=== PATIENT | female | born 1940 | race Caucasian/White ===

== ENCOUNTER 2018-04-07 16:30 | Inpatient (IN) | payer BC ==
[~2018-04-07] VITALS: Ht 162.6 cm; Wt 107.5 kg
[2018-04-07 16:34] VITALS: BP 160/70
[2018-04-07] MEDS ORDERED: COZAAR 25 MG TA25 M1 PO (16:47)
[2018-04-07] MEDS ORDERED: TOPROL XL25 MG PO (16:48)
[2018-04-07] MEDS ORDERED: FUROSEMIDE 40 M40 M1 PO (16:48)
[2018-04-07] MEDS ORDERED: SYNTHROID112 MC1 PO (16:48)
[2018-04-07] MEDS ORDERED: BACTRIM DS TAB1 EACH PO (16:49)
[2018-04-07] MEDS ORDERED: ASPIR 8181 MG PO (16:49)
[2018-04-07 17:00] LABS: ABSOLUTE EOSINOPHILS 0.1 thou/uL (0.0-0.7); ABSOLUTE LYMPHOCYTES 2.7 thou/uL (0.8-5.3); ABSOLUTE MONOCYTES 0.6 thou/uL (0.0-1.2); ABSOLUTE NEUTROPHILS 3.2 thou/uL (1.6-8.1); BASOPHILS 0.5 %; EOSINOPHILS 1.3 %; HEMATOCRIT 40.6 % (37.0-47.0); HEMOGLOBIN 13.8 gm/dL (12.0-15.0); LYMPHOCYTES 41.3 %; MCH 32.3 pg (26.0-34.0); MONOCYTES 8.5 %; MPV 9.9 fl. (7.2-11.1); NUCLEATED RBCS 0 /100WBC; PLATELET COUNT* 189 thou/uL (150-400); POLYS 48.4 %; RBC 4.27 mil/uL (4.20-5.00); RDW-CV 13.7 % (10.5-14.5); WBC 6.6 thou/uL (4.0-11.0)
[2018-04-07 17:06] LABS: ANION GAP 7 mmol/L (7-16); BUN 29 mg/dL (7-18); CALCIUM 9.2 mg/dL (8.5-10.1); CHLORIDE 100 mmol/L (98-107); CO2 33 mmol/L (21-32); CREATININE 1.1 mg/dL (0.6-1.3); GLUCOSE 98 mg/dL (70-99); POTASSIUM 4.3 mmol/L (3.5-5.1); SODIUM 140 mmol/L (136-145)
[2018-04-07 17:14] LABS: ALBUMIN 3.8 g/dL (3.4-5.0); ALKALINE PHOSPHATASE 122 U/L (46-116); CK-MB MASS 1.3 ng/mL (<0.5-3.6); LIPASE 235 U/L (73-393); NT-PRO BRAIN NAT PEPTIDE 129 pg/mL (<300); SGOT 19 U/L (15-37); SGPT 29 U/L (30-65); TOTAL BILIRUBIN 0.3 mg/dL (<0.1-1.0); TOTAL PROTEIN 7.5 g/dL (6.4-8.2); TROPONIN-I LEVEL <0.06 ng/mL (<0.06)
[2018-04-07 17:16] LABS: PROTIME 10.2 Seconds (9.20-11.50)
[2018-04-07 19:41] VITALS: BP 167/82
[2018-04-07 19:55] VITALS: BP 182/81
[2018-04-08] VITALS: BP 124/50
[2018-04-08 00:54] LABS: HEMATOCRIT 37.2 % (37.0-47.0); HEMOGLOBIN 12.5 gm/dL (12.0-15.0); MCHC 33.7 g/dL (28.0-37.0); MCV 95.1 fL (80.0-100.0); MPV 9.6 fl. (7.2-11.1); RBC 3.91 mil/uL (4.20-5.00); WBC 5.8 thou/uL (4.0-11.0)
[2018-04-08 01:48] LABS: BUN 28 mg/dL (7-18); CALCIUM 8.7 mg/dL (8.5-10.1); CHOLESTEROL 193 mg/dL (<200); CO2 31 mmol/L (21-32); CREATININE 0.9 mg/dL (0.6-1.3); GLUCOSE 99 mg/dL (70-99); HDL CHOLESTEROL 40 mg/dL (>40); LDL CHOLESTEROL 103 mg/dL (<100); TC:HDL 4.8 Ratio (Not establshd); TRIGLYCERIDE 250 mg/dL (<150); VLDL 50 mg/dL (<40)
[2018-04-08 02:02] LABS: ANION GAP 6 mmol/L (7-16); CHLORIDE 104 mmol/L (98-107); SERUM ASSESSMENT CLEAR; SODIUM 141 mmol/L (136-145)
[2018-04-08 04:00] VITALS: BP 124/49
[2018-04-08 08:30] VITALS: BP 125/77
[2018-04-08 12:00] VITALS: BP 153/73
--- NOTE | 2018-04-08 13:31 | 2DMMODE ---
[place] [address] 2 D/M-MODE ECHOCARDIOGRAM Name: NORM OLVERA Room: [address] IN [facility].#: [id number] Admission: 04/07/18 Attend Phys: Kip Macias MD Discharge: Date of : 36 Date of Service: 04/08/18 1330 Report #: [id number] THIS REPORT FOR: //name// APPROVED REPORT Study performed: 04/08/2018 08:58:35 EXAM: Comprehensive 2D, Doppler, and color-flow Echocardiogram Patient Location: Bedside BSA: 2.11 HR: 61 bpm BP: 124/49 mmHg Other Information Study Quality: Fair Indications Congestive Heart Failure 2D Dimensions IVSd: 10.63 (7-11mm) LVOT Diam: 20.54 (18-24mm) LVDd: 42.59 mm PWd: 10.06 (7-11mm) Ascending Ao: 33.84 (22-36mm) LVDs: 30.33 (25-40mm) Aortic Root: 29.09 mm Volumes Left Atrial Volume (Systole) LA ESV Index: 33.80 mL/m2 Aortic Valve AoV Peak Ra.: 0.88 m/s AO Peak Gr.: 3.07 mmHg LVOT Max P.81 mmHg AO Mean Gr.: 1.99 mmHg LVOT Mean P.97 mmHg LVOT Max V: 0.67 m/s AO V2 VTI: 23.68 cm LVOT Mean V: 0.46 m/s IRENE (VTI): 2.70 cm2 LVOT V1 VTI: 19.29 cm Mitral Valve E/A Ratio: 0.91 MV Decel. Time: 250.70 ms MV E Max Ra.: 0.84 m/s MV PHT: 72.70 ms MVA (PHT): 3.03 cm2 [place] [address] 2 D/M-MODE ECHOCARDIOGRAM Name: NORM OLVERA Room: [address] IN [facility]#: [id number] Admission: 04/07/18 Attend Phys: Kip Macias MD Discharge: Date of : 36 Date of Service: 04/08/18 1330 Report #: [id number] TDI E/Lateral E': 8.40 E/Medial E': 10.50 Medial E' Ra.: 0.08 m/s Lateral E' Ra.: 0.10 m/s Pulmonary Valve PV Peak Ra.: 0.70 m/s PV Peak Gr.: 1.95 mmHg Tricuspid Valve RAP Estimate: 5.00 mmHg TR Peak Gr.: 25.06 mmHg RVSP: 30.06 mmHg PA Pressure: 30.06 mmHg Left Ventricle The left ventricle is normal size. There is normal LV segmental wall motion. There is normal left ventricular wall thickness. Left ventricular systolic function is normal. LVEF is 60-65%. Grade I - abnormal relaxation pattern. Right Ventricle The right ventricle is normal size. The right ventricular systolic function is normal. Atria The left atrium size is normal. Interatrial septum not well visualized. The right atrium size is normal. Aortic Valve The aortic valve is normal in structure. No aortic regurgitation is present. There is no aortic valvular stenosis. Mitral Valve The mitral valve is normal in structure. Trace mitral regurgitation. No evidence of mitral valve stenosis. Tricuspid Valve The tricuspid valve is normal in structure. Trace tricuspid regurgitation. The RVSP is 30 mmHg. Pulmonic Valve The pulmonary valve is normal in structure. There is no pulmonic valvular regurgitation. Great Vessels The aortic root is normal in size. IVC is [place] [address] 2 D/M-MODE ECHOCARDIOGRAM Name: MAYYONNORM M Room: [address] IN [facility]#: [id number] Admission: 04/07/18 Attend Phys: Kip Macias MD Discharge: Date of : 36 Date of Service: 04/08/18 1330 Report #: [id number] collapses >50% with inspiration. Pericardium There is no pericardial effusion. <Conclusion> The left ventricle is normal size. There is normal left ventricular wall thickness. Left ventricular systolic function is normal. LVEF is 60-65%. Grade I - abnormal relaxation pattern. Trace mitral regurgitation. Trace tricuspid regurgitation. The RVSP is 30 mmHg. IVC is normal in size and collapses >50% with inspiration. <ELECTRONICALLY SIGNED> By: Munir Miguel MD, FACC 04/08/18 1330 29 29 Munir Miguel MD, FACC /INF
--- NOTE | 2018-04-08 14:00 | EKG ---
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1940 Requested By: Camilo Berman Order Number: [id number] MD: Munir Miguel Measurements Intervals [place] Rate: 67 P: 36 NE: 195 QRS: -44 QRSD: 97 T: 31 QT: 425 QTc: 449 Interpretive Statements Sinus rhythm Left axis deviation Low voltage, precordial leads No previous ECG available for comparison Electronically Signed On 04-08-2018 13:59:47 [employer] by Munir Miguel [email or web address] <ELECTRONICALLY SIGNED> By: Munir Miguel MD, [facility] 04/08/18 1359 1637 36 Munir Miguel MD, FACC /EPI
--- NOTE | 2018-04-08 14:21 | EKG ---
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1940 Requested By: Kip Macias Order Number: [id number] Reading MD: Munir Miguel Measurements Intervals [place] Rate: 57 P: 35 OK: 181 QRS: -33 QRSD: 104 T: 36 QT: 460 QTc: 448 Interpretive Statements Sinus rhythm Left axis deviation Low voltage, precordial leads Abnormal R-wave progression No previous ECG available for comparison Electronically Signed On 04-08-2018 14:20:48 [employer] by Munir Miguel [email or web address] <ELECTRONICALLY SIGNED> By: Munir Miguel MD, [facility] 04/08/18 1420 2 2 Munir Miguel MD, FAC /EPI
[2018-04-08 16:00] VITALS: BP 147/72
--- NOTE | 2018-04-08 16:52 | CARDNUC ---
[place] [address] CARDIAC NUCLEAR IMAGING REPORT Name: NORM OLVERA Room: [address] IN [facility]#: [id number] Admission: 04/07/18 Attend Phys: Kip Macias MD Discharge: Date of : 36 Date of Service: 04/08/18 1652 Report #: [id number] THIS REPORT FOR: //name// APPROVED REPORT Imaging Protocol: Stress Tc-99m/Rest Tc-99m 2 days Study performed: 04/08/2018 08:08:00 Indication: chest pain Patient Location: In-Patient Room #: 201 Stress Tech: Traci Goyal Stress Nurse: Debra Donaldson RN NM Tech:HAFSA Barreto Ht: 5 ft 4 in Wt: 237 lbs BSA: 2.10 m2 BMI: 40.67 Medical History Medical History: chest pain, left arm pain, pain in upper back Medications: ASA, losartan, furosemide, metoprolol, atorvastatin Allergies: nylon suture Cardiac Risk Factors: age, HLP, HTN, SC Previous Cardiac Procedures: none Meds Held (24 hrs): beta willie Pharmacologic Stress Pharmacologic stress test was performed by injecting Regadenoson 0.4 mg IV push over 10-15 seconds immediately followed by the intravenous injection of 38.8 mCi of Tc-99m Sestamibi. Time of stress injection: 16:20 Administration Site: Left AC Heart Rate at time of stress injection: 110 bpm. Gated Stress SPECT was performed 40 minutes after stress injection. Stress Test Details Stress Test: Pharmacologic stress was paired with low level exercise. HR Max Heart Rate (APMHR): 141 bpm Resting HR: 67 bpm Target HR (85% APMHR): 119 bpm Max HR Achieved: 110 [place] [address] CARDIAC NUCLEAR IMAGING REPORT Name: NORM OLVERA Room: [address]#: [id number] Admission: 04/07/18 Attend Phys: Kip Macias MD Discharge: Date of : 36 Date of Service: 04/08/18 1652 Report #: [id number] % of APMHR: 78 Recovery HR: 85 bpm BP Resting BP: 161/89 mmHg Max BP: 189/65 mmHg Recovery BP: 153/92 mmHg ECG Resting ECG: Sinus Rhythm Stress ECG: Sinus Tachycardia ST Change: None Arrhythmia: None Recovery ECG: Sinus Rhythm Recovery ST Change: None Recovery Arrhythmia: None Clinical Reason for Termination: Completed protocol Stress Symptoms: chest tightness/SOA that resolved in recovery period Exercise duration: 4 min 0 sec The patient tolerated Lexiscan infusion without significant symptoms. Stress ECG Conclusion The baseline 12-lead EKG shows sinus rhythm with no significant ST or T wave abnormalities. EKGs obtained during and post Lexiscan stress show sinus rhythm and sinus tachycardia with no significant ST or T wave changes when compared to baseline. There were no stress-induced arrhythmias. Study Quality Study: Good Artifact: No artifact Perfusion Post stress perfusion images show uniform uptake throughout the myocardium without defect. Wall Motion The images could not be gated. By echocardiogram the patient is known to have normal LV systolic function. Nuclear Conclusion ECG Findings: negative for ischemia Clinical Findings: [place] [address] CARDIAC NUCLEAR IMAGING REPORT Name: NORM OLVERA Room: [address] IN [facility]#: [id number] Admission: 04/07/18 Attend Phys: Kip Macias MD Discharge: Date of : 36 Date of Service: 04/08/181651 Report #: [id number] Nuclear Findings: negative for ischemia Exercise Capacity: not assessed Risk Study: low Myocardial perfusion images show no defect to suggest infarct or ischemia. This is a low risk study. <Conclusion> The baseline 12-lead EKG shows sinus rhythm with no significant ST or T wave abnormalities. EKGs obtained during and post Lexiscan stress show sinus rhythm and sinus tachycardia with no significant ST or T wave changes when compared to baseline. There were no stress-induced arrhythmias. <ELECTRONICALLY SIGNED> By: Munir Miguel MD, FACC 04/08/181651 51 51 Munir Miguel MD, [facility] /INF
[2018-04-08 19:07] LABS: GLYCOHEMOGLOBIN (HGB A1C) 5.8 % (4.8-5.6)
== END 2018-04-08 19:20 | disposition home or self-care (01) | DRG 313 ==
LOC: M.ERS 16:30 → M.2W 17:24 → M.TBA-ER 17:24 → M.2W 20:06
PROVIDERS: Family Medicine; ADMIT Family Medicine
DX: R07.89 Other chest pain (principal); N39.0 Urinary tract infection, site not specified; Z68.41 Body mass index [BMI] 40.0-44.9, adult; I50.32 Chronic diastolic (congestive) heart failure; E03.9 Hypothyroidism, unspecified; Z66 Do not resuscitate; I48.2 Chronic atrial fibrillation; I50.9 Heart failure, unspecified; I11.0 Hypertensive heart disease with heart failure; I25.10 Atherosclerotic heart disease of native coronary artery without angina pectoris; E66.9 Obesity, unspecified; E78.5 Hyperlipidemia, unspecified; I25.2 Old myocardial infarction; Z90.710 Acquired absence of both cervix and uterus; Z88.8 Allergy status to other drugs, medicaments and biological substances; Z82.49 Family history of ischemic heart disease and other diseases of the circulatory system; Z90.49 Acquired absence of other specified parts of digestive tract